=== PATIENT | female | born 1975 | race Caucasian/White ===

== ENCOUNTER → 2023-09-14 | Day surgery (SDC) | payer OTHER ==
[~2023-09-14] MED LIST: Balanced Salt Ophth Irrig 15 ML BOTTLE *BULK OP SCH; Cyclopentolate 2% Ophth Soln 1 BOTTLE *BULK OP SCH; EPINEPHrine 1 MG/ML (1:1000) 1 ML AMP IR SCH; Ketorolac 0.5% Ophth Soln 5 ML Bottle *BULK OP SCH; Midazolam 2 MG/2 ML VIAL IV ONE; Phenylephrine 10% Ophth Soln 5 ML BOTTLE *BULK OP SCH; Polymyxin B Sulfate/Trimethoprim Ophth Soln 10 ML BOTTLE *BULK OP SCH; Povidone Iodine 5% Ophth Soln 30 ML BOTTLE *BULK OP SCH; Proparacaine 0.5% Ophth Soln 15 ML BOTTLE *BULK OP SCH; Tropicamide 1% Ophth Soln Bottle *BULK OP SCH
== END | disposition home or self-care (01) ==
LOC: MSO 07:26
DX: E11.36 Type 2 diabetes mellitus with diabetic cataract (principal); H25.811 Combined forms of age-related cataract, right eye; F17.210 Nicotine dependence, cigarettes, uncomplicated
CPT/HCPCS: 00142; J0171; J2250; V2632

== ENCOUNTER → 2024-06-29 | Outpatient (CLI) | payer OTHER ==
[2024-06-29 13:35] LABS: ALBUMIN 4.5 g/dL (3.5-5.0)
[2024-06-29 13:36] LABS: CALCIUM 10.9 mg/dL (8.3-10.5)
[2024-06-29 13:38] LABS: TOTAL PROTEIN 8.7 g/dL (6.4-8.3)
[2024-06-29 13:53] LABS: TOTAL BILIRUBIN 0.6 mg/dL (0.2-1.2)
== END ==
LOC: LAB 13:08
PROVIDERS: Physician Assistant
DX: R74.01 Elevation of levels of liver transaminase levels (principal); R94.6 Abnormal results of thyroid function studies

== ENCOUNTER → 2024-07-19 | Outpatient (CLI) | payer OTHER | LOC: RAD 13:34 | DX: M16.11 Unilateral primary osteoarthritis, right hip (principal) ==